=== PATIENT | female | born 1975 | race Caucasian/White ===

== ENCOUNTER 2018-08-13 13:36 | Emergency (ER) | payer OTHER ==
[~2018-08-13] VITALS: Ht 167.6 cm; Wt 66.2 kg
[~2018-08-13 13:36] MED LIST: ENDOCET 325 MG-1 TA1 PO; HUMALOG100 U/ML; LEVETIRACETAM500 MG PO; PROTONIX 40MG T40 MG PO; TRAMADOL50 MG PO; VIMPAT100 MG PO
--- NOTE | 2018-08-13 15:05 | RADIOLOGY REPORT ---
EXAMINATION: XR CHEST CLINICAL INFORMATION: Chest pain. COMPARISON: Chest x-ray dated 09/06/2014 and 08/30/2014 and 09/27/2008. TECHNIQUE: 2 views of the chest were obtained. FINDINGS: The cardiomediastinal silhouette is within normal limits in size. Lungs bilaterally are symmetrically expanded and clear. No focal consolidation, effusion or pneumothorax is seen. Bony structures are unremarkable. IMPRESSION: No acute cardiopulmonary process seen.
[2018-08-13 15:44] LABS: ABSOLUTE BASOPHIL COUNT 0 /CUMM (0.0-0.2); ABSOLUTE EOSINOPHIL COUNT 0 /CUMM (0.0-0.7); ABSOLUTE GRANULOCYTE CT 6.8 /CUMM (1.4-6.5); ABSOLUTE LYMPH COUNT 1.3 /CUMM (1.2-3.4); ABSOLUTE MONOCYTE COUNT 0.2 /CUMM (0.10-0.60); BASOPHIL % 0.1 % (0.0-2.0); EOSINOPHIL % 0.6 % (0-5); GRANULOCYTE % 81.5 % (42.2-75.2); HEMATOCRIT 40.7 % (37-47); MEAN CORPUSCULAR HGB 32.3 PG (27.0-31.0); MEAN CORPUSCULAR HGB CONC 33.4 G/DL (33.0-37.0); MEAN CORPUSCULAR VOLUME 96.5 FL (81.0-99.0); MEAN PLATELET VOLUME 7.7 FL (7.4-10.4); PLATELET COUNT 195 /CUMM (130-400); RBC DISTRIBUTION WIDTH 13.7 % (11.5-14.5); RED BLOOD CELL CT 4.22 /CUMM (4.20-5.40); WHITE BLOOD CELL COUNT 8.4 /CUMM (4.8-10.8)
--- NOTE | 2018-08-13 15:55 | ULTRASOUND REPORT ---
EXAMINATION: US ABDOMEN LIMITED CLINICAL INFORMATION: Upper abdominal pain. COMPARISON: None TECHNIQUE: Real-time imaging of the right upper quadrant abdominal viscera. Color Doppler exam used. FINDINGS: PANCREAS: Normal. LIVER: Normal. The liver demonstrates normal size, contour and echogenicity. No focal lesion or intrahepatic biliary duct dilatation. GALLBLADDER: Normal. The gallbladder is physiologically distended without evidence of stones, sludge, polyps, wall thickening or pericholecystic fluid. COMMON BILE DUCT: Normal in caliber measuring 0.3 cm in diameter. RIGHT KIDNEY: There is a 5 mm nonobstructive stone in the midpole and another in the lower pole of the right kidney. There is a 4 mm stone in the upper pole. There is no hydronephrosis. FREE FLUID: None. IMPRESSION: 1. No acute abnormality. No gallstone or bile duct dilatation 2. Nonobstructive right renal stones. No hydronephrosis.
--- NOTE | 2018-08-13 16:02 | ED CARDIAC/CP/PALPITATIONS ---
History of Present Illness General Chief Complaint: General Adult Stated Complaint: MULTIPLE COMPLAINTS/ARM PAINS/ABD PAIN/SOB Source: patient Exam Limitations: no limitations Vital Signs & Intake/Output Vital Signs & Intake/Output Vital Signs Date Time Temp Pulse Resp B/P B/P Pulse O2 O2 Flow FiO2 Mean Ox Delivery Rate 08/13 1558 100 Nasal 2.0L Cannula 08/13 1553 97.1 94 18 152/78 98 Nasal 2.0L Cannula 08/13 1550 97.1 84 20 164/86 98 Nasal 2.0L Cannula 08/13 1414 97.4 69 16 133/79 99 Room Air Allergies Coded Allergies: carbamazepine (From TEGRETOL) (Severe, RASH 08/13/18) phenytoin (Severe, RASH 08/13/18) Penicillins (RASH 08/13/18) divalproex sodium (INEFFECTIVE 08/13/18) fluconazole (LIP SWELLING 08/13/18) nystatin (RASH 08/13/18) Reconcile Medications Insulin Lispro, Recombinant (Humalog) (Unknown Strength) LORRIE (Unknown Dose) DIABETES (Reported) Lacosamide (Vimpat) 100 MG TABLET 2 TAB PO BID SEIZURES (Reported) Levetiracetam 500 MG TABLET 4 TAB PO BID SEIZURES (Reported) OXYCODONE HCL/ACETAMINOPHEN (Endocet 5-325 Tablet) 5 MG-325 MG TABLET 1 TAB PO 4XDP PRN PAIN [id number] Pantoprazole Sodium (Protonix) 40 MG TABLET.DR 1 TAB PO DAILY GASTRITIS TRAMADOL HCL (Tramadol) 50 MG TABLET 1 TAB PO Q6 PRN PAIN Triage Note: 43 Y/O FEMALE C/O DIFFUSE ABDOMINAL PAIN, UPPER BACK PAIN, SOB AND BILATERAL ARM PAIN ("BACK OF ARMS" X APPROX 3 WEEKS. PT STATES SHE HAD CHEST PAIN TODAY WHICH IS WHAT PROMPTED THE VISIT TO ED TODAY. PT REPORTS HX ACID REFLUX AND WAS TOLD SHE HAS "LESIONS" IN HER THROAT. EVAL'D BY RADHA LOVE IN TRIAGE Triage Nurses Notes Reviewed? yes : No Patient currently breastfeeds: No HPI: Patient presents for evaluation of epigastric abdominal pain radiating into the chest. Patient has been experiencing abdominal pain over the past 3 weeks presents to the emergency department today because of chest pain. Pain is described as constant and moderate in intensity and squeezing or pressure feeling. Past History Travel History Traveled to [place] past 21 day No Medical History Any Pertinent Medical History? see below for history Neurological: seizure EENT: NONE Cardiovascular: NONE Respiratory: NONE Gastrointestinal: GERD Hepatic: NONE Renal: NONE Musculoskeletal: NONE Psychiatric: NONE Endocrine: diabetes Pneumonia Vaccine: 11/27/99 Surgical History Surgical History: non-contributory Psychosocial History Who do you live with Spouse What is your primary language Bermudian Tobacco Use: Current Daily Use Daily Tobacco Use Amount/Type: => 5 Cigarettes daily Family History Hx Contributory? No Review of Systems Review of Systems Constitutional: Reports: no symptoms. EENTM: Reports: no symptoms. Respiratory: Reports: no symptoms. Cardiovascular: Reports: chest pain. GI: Reports: abdominal pain. Genitourinary: Reports: no symptoms. Musculoskeletal: Reports: no symptoms. Skin: Reports: no symptoms. Neurological/Psychological: Reports: no symptoms. Hematologic/Endocrine: Reports: no symptoms. Immunologic/Allergic: Reports: no symptoms. All Other Systems: Reviewed and Negative Physical Exam Physical Exam Cardiovascular: see below Comments: Gen.: Well-nourished, well-developed, no acute respiratory distress. Mild to moderate distress secondary to pain Head: Normocephalic, atraumatic. Eyes: Normal inspection bilaterally Ears: Normal inspection bilaterally Nose: Normal inspection Throat/mouth : Moist mucosa Neck: Supple, full range of motion, no goiter Heart: Regular rate and rhythm, no murmurs rubs or gallops Lungs: Clear to auscultation bilaterally with normal air entry Chest: Nontender Back: Normal range of motion Abdomen: Soft, nontender, nondistended, normal bowel sounds Extremities: Normal range of motion grossly, equal radial pulses, no cyanosis clubbing or edema Neurologic: Cranial nerves grossly intact, speech is clear Skin: warm and dry Psychiatric: Calm, cooperative, no apparent delusions or hallucinations Core Measures ACS in differential dx? Yes CVA/TIA Diagnosis No Sepsis Present: No Sepsis Focused Exam Completed? No Progress Differential Diagnosis: AMI, musculoskeletal pain, pancreatitis, pneumonia, unstable angina Plan of Care: Orders Procedure Date/time Status XRY-PORTABLE CHEST XRAY 08/13 1549 Active EKG 08/13 1547 Active TROPONIN LEVEL 08/13 1418 Active HUMAN BETA HCG SCREEN 08/13 1418 Active D-DIMER 08/13 1418 Complete COMPREHENSIVE METABOLIC PANEL 08/13 1418 Active CBC WITHOUT DIFFERENTIAL 08/13 1418 Complete EKG 08/13 1418 Active Current Medications Sig/Catina Start time Last Medication Dose Stop Time Status Admin Sodium Chloride 500 ML BOLUS ONE 08/13 1600 AC 08/13 (Normal Saline 0.9%) 08/13 1659 1557 Laboratory Tests 08/13/18 1535: Sodium Pending, Potassium Pending, Chloride Pending, Carbon Dioxide Pending, Anion Gap Pending, BUN Pending, Creatinine Pending, BUN/Creatinine Ratio Pending , Glucose Pending, Calcium Pending, Total Bilirubin Pending, AST Pending, ALT Pending, Alkaline Phosphatase Pending, Troponin I Pending, Total Protein Pending , Albumin Pending, Globulin Pending, Albumin/Globulin Ratio Pending, Total Beta HCG NEGATIVE, D-Dimer High Sensitivty < 200, CBC w Diff NO MAN DIFF REQ, RBC 4.22, MCV 96.5, MCH 32.3 H, MCHC 33.4, RDW 13.7, MPV 7.7, Gran % 81.5 H, Lymphocytes % 15.2 L, Monocytes % 2.6, Eosinophils % 0.6, Basophils % 0.1, Absolute Granulocytes 6.8 H, Absolute Lymphocytes 1.3, Absolute Monocytes 0.2, Absolute Eosinophils 0, Absolute Basophils 0 Initial ED EKG: NSR, ST elevation (inferiorly), ST depression (laterally) Comments: 08/13/2018 4:01:57 PM patient's case discussed with Dr. White who agrees patient should be transferred to the cardiac catheterization lab. Departure Departure Disposition: [facility] (ACUTE) Condition: Stable Clinical Impression Primary Impression: Acute transmural inferior wall SD Referrals: Ashkan Jade DO (PCP/Family) Departure Forms: Customer Survey General Discharge Information Critical Care Note Critical Care Note Critical Care Time: non-applicable
[2018-08-13 16:06] VITALS: BP 159/91
== END 2018-08-13 16:08 | disposition short-term general hospital (02) ==
LOC: ERH 13:36
PROVIDERS: Physician Assistant Medical
DX: I21.4 Non-ST elevation (NSTEMI) myocardial infarction (principal); K21.9 Gastro-esophageal reflux disease without esophagitis; E11.9 Type 2 diabetes mellitus without complications; F17.210 Nicotine dependence, cigarettes, uncomplicated; R56.9 Unspecified convulsions; Z79.84 Long term (current) use of oral hypoglycemic drugs
CPT/HCPCS: 71046; 93005; 93010; J3490; J7040